=== PATIENT | female | born 2000 | race Caucasian/White ===

== ENCOUNTER 2025-07-02 22:34 | Emergency (ER) | payer OTHER ==
[~2025-07-02] VITALS: Ht 172.7 cm; Wt 100.0 kg
[2025-07-02] MEDS ORDERED: ONDANSETRON 4 MG TAB ODT SL ONE (22:45)
[2025-07-02 23:03] LABS: CORONAVIRUS COVID-19 AG NEGATIVE (NEGATIVE)
[2025-07-02] MEDS ORDERED: LACTATED RINGER'S 1,000 ML IV ONE (23:15)
[2025-07-02 23:22] LABS: BASOPHILS 0.4 % (0.1-1.2); EOSINOPHILS 2.3 % (0.7-5.8); LYMPHOCYTES 35.0 % (19.3-51.7); MCH 30.4 PG (25.6-32.2); MCHC 32.9 g/dL (32.2-35.5); MCV 92.2 fL (79.4-94.8); MONOCYTES 6.9 % (4.7-12.5); NEUTROPHILS 55.3 % (34.0-71.1); RBC 4.38 M/uL (3.93-5.22)
[2025-07-02 23:47] LABS: ALT (SGPT) 43.0 U/L (14-59); AST (SGOT) 26.0 U/L (15-37); GLOMERULAR FILTRATION RATE,EST 86.0 mL/min (>60); PROTEIN, TOTAL 7.6 g/dL (6.4-8.2); UREA NITROGEN 12.0 mg/dL (7-18)
[2025-07-03 00:14] LABS: BLOOD/HGB, URINE LARGE (Negative); KETONE, URINE NEGATIVE (Negative); LEUK ESTERASE, URINE NEGATIVE (negative); NITRITE, URINE NEGATIVE (negative)
[2025-07-03 00:37] LABS: BACTERIA, URINE 3+ /hpf (negative); CASTS, URINE NONE SEEN \\lpf; CRYSTALS, URINE NONE SEEN (0-1+); EPITHELIAL CELLS, URINE SQUAMOUS 3+ /lpf (0-1+)
[2025-07-03 00:38] LABS: REFLEX CULTURE, URINE No (No)
[2025-07-03] MEDS ORDERED: ONDANSETRON 4 MG HOME.PACK SL ONE (00:45)
[2025-07-03] MEDS ORDERED: ONDANSETRON ODT4 MG PO (00:46)
== END 2025-07-03 00:58 | disposition home or self-care (01) ==
LOC: ED 22:34
PROVIDERS: Internal Medicine
DX: B34.9 Viral infection, unspecified (principal)
CPT/HCPCS: 36415; 80053; 81001; 84703; 85025; 96360; 99284-25; A9270; J7121